=== PATIENT | male | born 1955 | race Caucasian/White ===

== ENCOUNTER 2023-01-24 18:06 | Inpatient (IN) | payer OTHER ==
[~2023-01-24] VITALS: Ht 160 cm; Wt 67.4 kg
[2023-01-24 20:12] LABS: CHLORIDE 110 mEq/L (98-107)
[2023-01-24 20:23] LABS: BASOPHILS % 0.8 % (0.0-2.0); EOSINOPHILS % 1.9 % (0.0-5.0); ETHANOL BLOOD < 10 mg/dL; HDL CHOLESTEROL 62 mg/dL (40-59); HEMATOCRIT. 41.8 % (42.0-52.0); HEMOGLOBIN. 13.8 g/dL (14.0-18.0); LDL CHOLESTEROL 104 mg/dL (5-100); LYMPHOCYTES % 22.7 % (20.0-50.0); MEAN CORPUSCULAR HEMOGLOBIN 28.9 pg (28.0-32.0); MEAN CORPUSCULAR VOLUME 87.7 fL (80.0-94.0); MONOCYTES % 8.9 % (2.0-8.0); NEUTROPHILS % 65.7 % (40.0-76.0); PLATELET 110 x1000/uL (130-400); RED BLOOD CELL COUNT 4.76 mill/uL (4.7-6.1); RED CELL DISTRIBUTION WIDTH 18.8 % (11.6-14.6)
[2023-01-24] MEDS ORDERED: ASPIRIN 325MG EC TABLET PO NR (20:45)
[2023-01-24] MEDS: ATORVASTATIN CALCIUM 40MG TABLET PO SCH (21:55)
[2023-01-25 05:14] LABS: *AMPHETAMINES SCREEN URINE NEGATIVE (NEGATIVE); *BARBITURATES SCREEN URINE NEGATIVE (NEGATIVE); *BENZODIAZEPINES SCREEN URINE NEGATIVE (NEGATIVE); *COCAINE SCREEN URINE NEGATIVE (NEGATIVE); CANNABINOID URINE SCREEN NEGATIVE (NEGATIVE); METHADONE URINE SCREEN NEGATIVE (NEGATIVE); OPIATES URINE SCREEN NEGATIVE (NEGATIVE); PHENCYCLIDINE URINE SCREEN NEGATIVE (NEGATIVE)
[2023-01-25 10:05] VITALS: BP 145/73
[2023-01-25 10:29] VITALS: BP 145/73
[2023-01-25] MEDS ORDERED: TAMS-11 PO (10:29)
[2023-01-25] MEDS ORDERED: LISI30TA36 PO (10:29)
[2023-01-25 12:00] VITALS: BP 140/70
[2023-01-25] MEDS ORDERED: ONDANSETRON HCL 4MG/2ML INJ IV PRN (13:45)
[2023-01-25] MEDS ORDERED: ACETAMINOPHEN 325MG TABLET PO PRN (13:45)
[2023-01-25] MEDS ORDERED: IPRATROPIUM/ALBUTEROL 0.5-3(2.5)MG/3ML NEB HHN PRN (13:45)
[2023-01-25] MEDS ORDERED: ALBUTEROL (0.083%) 2.5MG/3ML NEB HHN PRN (14:00)
[2023-01-25] MEDS ORDERED: IPRATROPIUM BROMIDE (0.02%) 0.5MG/2.5ML NEB HHN PRN (14:00)
[2023-01-25 16:00] VITALS: BP 124/64
[2023-01-25] MEDS: ENOXAPARIN 40MG/0.4ML SYR SUBCUT SCH (16:52)
[2023-01-25 20:00] VITALS: BP 132/72
[2023-01-25] MEDS: ATORVASTATIN CALCIUM 40MG TABLET PO SCH (20:37)
[2023-01-26] VITALS: BP 130/74
[2023-01-26 00:53] LABS: CREATINE KINASE MB FRACTION < 1.0 ng/mL (0.5-3.6)
[2023-01-26 04:00] VITALS: BP 130/76
[2023-01-26 08:00] VITALS: BP 145/77
[2023-01-26 12:00] VITALS: BP 124/69
[2023-01-26 16:00] VITALS: BP 132/79
[2023-01-26] MEDS: ENOXAPARIN 40MG/0.4ML SYR SUBCUT SCH (17:01)
[2023-01-26 20:00] VITALS: BP 123/66
[2023-01-26] MEDS: ATORVASTATIN CALCIUM 40MG TABLET PO SCH (21:05)
[2023-01-27] VITALS: BP 140/84
[2023-01-27 04:00] VITALS: BP 138/71
[2023-01-27 08:00] VITALS: BP 130/68
[2023-01-27] MEDS: ENOXAPARIN 40MG/0.4ML SYR SUBCUT SCH (15:11)
[2023-01-27 15:55] VITALS: BP 135/72
[2023-01-27 16:00] VITALS: BP 139/62
== END 2023-01-27 16:50 | disposition home health service (06) | DRG 74 ==
LOC: ER 18:06 → MICUSO 22:15 → EDBEDREQ 22:31 → 7EST 01-25 09:15
PROVIDERS: ADMIT Internal Medicine; ATTEND Internal Medicine
DX: G57.32 Lesion of lateral popliteal nerve, left lower limb (principal); M21.372 Foot drop, left foot; D69.6 Thrombocytopenia, unspecified; I10 Essential (primary) hypertension; Z20.822 Contact with and (suspected) exposure to COVID-19; M19.90 Unspecified osteoarthritis, unspecified site
CPT/HCPCS: 36415; 70551; 71045; 72141; 72148; 80053; 80061; 80305; 80320; 82553; 83036; 83880; 84484; 85025; 86850; 86900; 87426; 93005; 97162; 99285; J1650; G0480